=== PATIENT | male | born 1990 | race Two or more races ===

== ENCOUNTER 2022-04-25 19:13 | Emergency (ER) | payer MEDICAID, OTHER ==
[~2022-04-25] VITALS: Ht 188 cm; Wt 81.8 kg
[2022-04-25 19:13] VITALS: BP 0/0
[2022-04-25] MEDS ORDERED: EPINEPHrine HCL 1 MG/10 ML SYRG IV ONE (19:14)
== END 2022-04-25 22:18 ==
LOC: EDBD 19:13 → ER 19:13 → EEVIPCON 19:13 → ER 22:18
DX: S09.90XA Unspecified injury of head, initial encounter (principal); S49.92XA Unspecified injury of left shoulder and upper arm, initial encounter; S49.91XA Unspecified injury of right shoulder and upper arm, initial encounter; X58.XXXA Exposure to other specified factors, initial encounter; Y93.89 Activity, other specified; Y92.89 Other specified places as the place of occurrence of the external cause; Y99.8 Other external cause status
CPT/HCPCS: 92950; 99285; J0171